=== PATIENT | male | born 1970 | race American Indian/Alaskan Native ===

== ENCOUNTER 2017-03-24 19:24 | Emergency (ER) | payer OTHER ==
[2017-03-24] MEDS ORDERED: Sodium Chloride 0.9% 1,000 ML IV ONE (20:42)
[2017-03-24] MEDS ORDERED: Morphine 4 MG/ML VIAL ONE ×2 (20:50→21:22)
[2017-03-24 20:51] LABS: BASO % 0.2 % (0.0-2.0); EOS % 0.5 % (0.0-4.0); HEMOGLOBIN 15.6 g/dL (12.0-18.0); LYMPH # 0.6 K/uL (1.0-4.3); LYMPH % 6.7 % (20.0-40.0); MEAN CELL VOLUME 86.8 fL (80.0-94.0); MEAN CORPUSCULAR HEMOGLOBIN 30.3 pg (27.0-31.0); MEAN CORPUSCULAR HGB CONC 34.9 g/dL (33.0-37.0); MEAN PLATELET VOLUME 8.6 fL (7.2-11.7); MONO # 0.4 K/uL (0.0-0.8); MONO % 5.1 % (0.0-10.0); NEUT # 7.3 K/uL (1.8-7.0); NEUT % 87.5 % (50.0-75.0); NRBC % 0.1 % (0.0-2.0); PLATELET COUNT 194 K/uL (130-400); RBC 5.16 Mil/uL (4.40-5.90); RED CELL DISTRIBUTION WIDTH 13.7 % (11.5-14.5); WHITE BLOOD COUNT 8.4 K/uL (4.8-10.8)
[2017-03-24 21:03] LABS: ALB/GLOB RATIO 1.3 (1.0-2.1); ALBUMIN 4.6 g/dL (3.5-5.0); ALT/SGPT 38 U/L (21-72); AST/SGOT 31 U/L (17-59); BLOOD UREA NITROGEN 15 mg/dL (9-20); CALCIUM 9.7 mg/dl (8.6-10.4); GFR AFRICAN-AMERICAN > 60; GFR NON-AFRICAN AMERICAN 60; LIPASE 47 U/L (23-300)
[2017-03-24] MEDS ORDERED: Iodixanol 320 MG/ML 100 ML BOTTLE IV ONE (21:18)
[2017-03-24] MEDS ORDERED: Morphine 4 MG/ML VIAL IV ONE (21:21)
--- NOTE | 2017-03-24 21:23 | C.PDOC ---
History Of Present Illness 46 y/o male presents to ED with complaints of right sided abdominal pain associated with nausea and no appetite that began 1PM today. Denies vomiting, fever, or back pain. Pt states pain is worse when he walks. Pt also states has not been taking his blood pressure medication. Chief Complaint (Nursing): Abdominal Pain History Per: Patient History/Exam Limitations: no limitations Onset/Duration Of Symptoms: Hrs Current Symptoms Are (Timing): Still Present Location Of Pain/Discomfort: RUQ, RLQ Radiation Of Pain To:: None Associated Symptoms: Nausea. denies: Fever, Vomiting Exacerbating Factors: None Alleviating Factors: None Recent travel outside of the [place]: No Past Medical History Reviewed: Historical Data, Nursing Documentation, Vital Signs Vital Signs: Last Vital Signs Temp 98 F 03/24/17 23:46 Pulse 86 03/24/17 23:46 Resp 18 03/24/17 23:46 BP 136/89 03/24/17 23:46 Pulse Ox 98 03/24/17 23:46 - Medical History PMH: HTN Surgical History: No Surg Hx Family History: States: No Known Family Hx - Social History Hx Alcohol Use: No Hx Substance Use: No Review Of Systems Constitutional: Negative for: Fever Cardiovascular: Negative for: Chest Pain Gastrointestinal: Positive for: Nausea, Abdominal Pain. Negative for: Vomiting , Diarrhea Musculoskeletal: Negative for: Back Pain Neurological: Negative for: Weakness, Numbness Physical Exam - Physical Exam Appears: Well, Non-toxic, In Acute Distress (Mild due to pain) Skin: Normal Color, Warm, Dry Head: Atraumatic, Normacephalic Eye(s): bilateral: Normal Inspection Oral Mucosa: Moist Neck: Supple Chest: Symmetrical, No Tenderness Cardiovascular: Rhythm Regular Respiratory: Normal Breath Sounds, No Rales, No Rhonchi, No Wheezing Gastrointestinal/Abdominal: Bowel Sounds, Soft, Tenderness (Subjective in RLQ), No Guarding, No Rebound, Other (patient grimaces when examined by stethoscope in RUQ and RLQ; more in the RLQ. Positive obturator and psoas sign) Neurological/Psych: Oriented x3, Normal Speech, Normal Cognition ED Course And Treatment - Laboratory Results Result Diagrams: 03/24/17 20:48 03/24/17 20:48 O2 Sat by Pulse Oximetry: 100 (RA) Pulse Ox Interpretation: Normal - CT Scan/US CT Abdomen & Pelvis Other Rad Studies (CT/US): Read By Radiologist, Radiology Report Reviewed CT/US Interpretation: EXAM: CT Abdomen and Pelvis With Intravenous Contrast. CLINICAL HISTORY: 46 years old, male; Pain; Abdominal pain; Localized; Right; Additional info: Abd pain. TECHNIQUE: Axial computed tomography images of the abdomen and pelvis with intravenous contrast. All CT. scans at this facility use one or more dose reduction techniques, viz.: automated exposure control;. ma/kV adjustment per patient size (including targeted exams where dose is matched to indication; i.e. head); or iterative reconstruction technique. Coronal and sagittal reformatted images were created and reviewed. CONTRAST: 100 mL of [id number] administered intravenously. COMPARISON: No relevant prior studies available. FINDINGS: Lower thorax: No acute findings. ABDOMEN: Liver : Small calcification. Gallbladder and bile ducts: No calcified stones. No ductal dilation. Pancreas: No ductal dilation. No mass. Spleen: No splenomegaly. Adrenals: No mass. [facility]. [employer]. Final Radiology Report [id number]. Name: MABEL CHENG Age: 46Years M Date: 04/2017. SSN: [id number] : 1970. Study: CT ABDOMEN/ PELVIS W Requesting Physician: Nora Velazquez. Images: 585. Addl Studies: Provided Clinical History: abd pain. CONFIDENTIALITY STATEMENT. This transmission is confidential and is intended to be a privileged communication. It is intended only for the use of the addressee. Access to this. message by anyone else is unauthorized. If you are not the intended recipient, any disclosure, copying, distribution or any action taken, or omitted to. be taken in reliance on it is prohibited and may be unlawful. If you received this communication in error, please notify us by telephone, so that return. of this document to us can be arranged. Page 2 of 2. Kidneys and ureters: Moderate stranding/fluid about RIGHT kidney. Delayed. enhancement/excretion of RIGHT kidney. Too small to characterize lesion within RIGHT kidney. No. renal calculi. Zeeu-hv-apoyvhsl pelvocaliectasis of RIGHT kidney. Mild to moderately dilated RIGHT. ureter. 0.2 x 0.2 x 0.2 cm calculus at/near RIGHT ureterovesical junction. Stomach and bowel: Segmental areas of probable underdistention of colon. No definite mural. thickening. No obstruction. Appendix: No findings to suggest acute appendicitis. PELVIS: Bladder: Unremarkable. Reproductive: Unremarkable as visualized. ABDOMEN and PELVIS: Intraperitoneal space: Small amount of fluid within RIGHT paracolic gutter. No free air. Bones/joints: No acute fracture. Soft tissues: Unremarkable. Vasculature: Minimal atherosclerotic disease of iliac arteries. No aneurysm. Lymph nodes: No pathologically enlarged lymph nodes. IMPRESSION: 1. RIGHT distal ureteral calculus with [id number]-vuvydthd hydroureteronephrosis. 2. Incidental/non-acute findings are described above. Thank you for allowing us to participate in the care of your patient. Dictated and Authenticated by: Renny Jordan MD. 03/24/2017 10:10 PM Eastern Time ([place] & [place]) Medical Decision Making Medical Decision Making: Administered IV fluids. Ordered blood work and CT of abdomen and pelvis. Disposition - Disposition Referrals: Drake Gray MD [Staff Provider] - Disposition: HOSPITALIZED Disposition Time: 23:00 Condition: FAIR Prescriptions: Ciprofloxacin HCl [Cipro] 500 mg PO BID #10 tablet oxyCODONE/Acetaminophen [Percocet 5/325 mg Tab] 1 ea PO QID PRN #12 tab PRN Reason: Pain, Mild (1-3) Tamsulosin [Flomax] 0.4 mg PO DAILY 5 Days #5 cap Instructions: Renal Colic (ED) Forms: [employer] (Kyrgyz) Print Language: ROMANIAN - Clinical Impression Clinical Impression: Renal colic on right side - Scribe Statement The provider has reviewed the documentation as recorded by the Essence Hernadez All medical record entries made by the Camilaiberma were at my direction and personally dictated by me. I have reviewed the chart and agree that the record accurately reflects my personal performance of the history, physical exam, medical decision making, and the department course for this patient. I have also personally directed, reviewed, and agree with the discharge instructions and disposition.
[2017-03-24 21:26] LABS: BANDS 1 % (0-2); BASOPHIL 1 % (0-2); LYMPHOCYTE 7 % (20-40); MONOCYTE 7 % (0-10); NEUTROPHIL 84 % (50-75); TOTAL CELLS COUNTED 100
[2017-03-24 21:27] LABS: LARGE PLATELETS PRESENT; PLATELET ESTIMATE NORMAL (NORMAL)
[2017-03-24] MEDS ORDERED: HYDROmorphone 1 mg/ml ISec IVP STA (21:40)
--- NOTE | 2017-03-24 22:10 | CT ---
EXAM: CT Abdomen and Pelvis With Intravenous Contrast CLINICAL HISTORY: 46 years old, male; Pain; Abdominal pain; Localized; Right; Additional info: Abd pain TECHNIQUE: Axial computed tomography images of the abdomen and pelvis with intravenous contrast. All CT scans at this facility use one or more dose reduction techniques, viz.: automated exposure control; ma/kV adjustment per patient size (including targeted exams where dose is matched to indication; i.e. head); or iterative reconstruction technique. Coronal and sagittal reformatted images were created and reviewed. CONTRAST: 100 mL of [id number] administered intravenously. COMPARISON: No relevant prior studies available. FINDINGS: Lower thorax: No acute findings. ABDOMEN: Liver: Small calcification. Gallbladder and bile ducts: No calcified stones. No ductal dilation. Pancreas: No ductal dilation. No mass. Spleen: No splenomegaly. Adrenals: No mass. Kidneys and ureters: Moderate stranding/fluid about RIGHT kidney. Delayed enhancement/excretion of RIGHT kidney. Too small to characterize lesion within RIGHT kidney. No renal calculi. Agcc-ba-nqyeyfmr pelvocaliectasis of RIGHT kidney. Mild to moderately dilated RIGHT ureter. 0.2 x 0.2 x 0.2 cm calculus at/near RIGHT ureterovesical junction. Stomach and bowel: Segmental areas of probable underdistention of colon. No definite mural thickening. No obstruction. Appendix: No findings to suggest acute appendicitis. PELVIS: Bladder: Unremarkable. Reproductive: Unremarkable as visualized. ABDOMEN and PELVIS: Intraperitoneal space: Small amount of fluid within RIGHT paracolic gutter. No free air. Bones/joints: No acute fracture. Soft tissues: Unremarkable. Vasculature: Minimal atherosclerotic disease of iliac arteries. No aneurysm. Lymph nodes: No pathologically enlarged lymph nodes. IMPRESSION: 1. RIGHT distal ureteral calculus with axnl-nl-oaxxmmay hydroureteronephrosis. 2. Incidental/non-acute findings are described above.
[2017-03-24 23:47] VITALS: BP 136/89; PULSE 86; RESP 18; TEMP 98
[2017-03-24 23:51] LABS: URINE AMORPHOUS SEDIMENT RARE /ul (<OCC); URINE BILIRUBIN NEGATIVE (NEGATIVE); URINE BLOOD NEGATIVE (NEGATIVE); URINE CLARITY Hazy (Clear); URINE COLOR Yellow (YELLOW); URINE GLUCOSE (UA) NORMAL (Normal); URINE LEUKOCYTE ESTERASE NEG Leu/uL (Negative); URINE NITRATE NEGATIVE (NEGATIVE); URINE PROTEIN NEGATIVE (NEGATIVE); URINE UROBILINOGEN NORMAL mg/dL (0.2-1.0)
[2017-03-24 23:59] VITALS: O2SAT 100
== END 2017-03-24 23:47 | disposition home or self-care (01) ==
LOC: C.ER 19:24
DX: N23 Unspecified renal colic (principal)
CPT/HCPCS: 74177; 80053; 81001; 83690; 85025; 96374; 96375; 96376; 99284; J1170; J1885; J2270; J2405; J7040; Q9967